=== PATIENT | male | born 1965 | race Caucasian/White ===

== ENCOUNTER → 2020-01-28 | Outpatient (CLI) | payer BC ==
--- NOTE | 2020-01-28 15:21 | US ---
EXAMINATION TYPE: US kidneys/renal and bladder DATE OF EXAM: 01/28/2020 COMPARISON: NONE CLINICAL HISTORY: Abn kidney function testR94.4. Abnormal labs EXAM MEASUREMENTS: Right Kidney: 10.6 x 4.1 x 4.7 cm Left Kidney: 9.3 x 6.6 x 4.9 cm Right Kidney: Appeared wnl Left Kidney: Appeared wnl Bladder: wnl Bilateral Jets seen: Only right jet visualized Incidental finding gallstones There is no evidence for hydronephrosis at this point in time. No nephrolithiasis is seen. No kathryn s are identified. The urinary bladder is anechoic. IMPRESSION: 1. No distinct abnormality seen. Incidental cholelithiasis.
== END | disposition home or self-care (01) ==
LOC: RADUSWWP 14:56
PROVIDERS: ATTEND Internal Medicine Geriatric Medicine
DX: R94.4 Abnormal results of kidney function studies (principal)
CPT/HCPCS: 76770

== ENCOUNTER → 2021-07-07 | Outpatient (CLI) | payer BC ==
--- NOTE | 2021-07-07 09:44 | CT ---
EXAMINATION TYPE: CT foot LT wo con DATE OF EXAM: 07/07/2021 COMPARISON: None available HISTORY: Lt foot pain CT DLP: 143.3 mGycm Automated exposure control for dose reduction was used. TECHNIQUE: Multiplanar CT scan of the left foot without IV contrast administration. FINDINGS: Elongated 12 mm bone chip is seen at the lateral aspect of the calcaneocuboid articulation which coul d represent soft tissue calcification versus chronic avulsion fracture, please correlate clinically. Osteophytosis of the dorsal aspect of the fourth distal interphalangeal joint. 2 mm bone fragment/sof t tissue calcification is seen in the sinus tarsi yet still demonstrates preserved fat. No definite acute fracture line identified otherwise. No other significant bony or articular abnormal ity is seen. Preserved ankle mortise with a smooth talar dome. No sizable ankle joint effusion. Soft tissue abnormality cannot be excluded by this CT scan. IMPRESSION: 12 mm elongated bone chip at the lateral aspect of the calcaneocuboid articulation which could repres ent a soft tissue calcification versus chronic avulsion fracture, please correlate clinically. Other incidental findings as described above. Further bone scan assessment can be considered if clinically required.
== END | disposition home or self-care (01) ==
LOC: RADCTMAIN 06:54
PROVIDERS: ATTEND Podiatrist
DX: M89.8X7 Other specified disorders of bone, ankle and foot (principal)

== ENCOUNTER 2021-11-10 07:34 | Day surgery (SDC) | payer BC ==
[2021-11-09 13:52] VITALS: BMI 25.0
[~2021-11-10 07:34] MED LIST: LACTATED RINGERS 1,000 ML IV SCH
[2021-11-10 07:59] VITALS: RESP 16; TEMP 97.2
[2021-11-10] MEDS ORDERED: PROPOFOL 10 MG/ML 20 ML VIAL IV ONE (09:28)
--- NOTE | 2021-11-10 09:42 | P.PCN ---
Date of Procedure: 11/10/21 Procedure(s) Performed: BRIEF HISTORY: Patient is a 56-year-old pleasant white male scheduled for an elective colonoscopy as a part of screening for colorectal neoplasia PROCEDURE PERFORMED: Colonoscopy. PREOPERATIVE DIAGNOSIS: Screening for colon cancer. IV sedation per Anesthesia. PROCEDURE: After informed consent was obtained, the patient, was brought into the endoscopy unit. IV sedation was administered by Anesthesia under continuous monitoring. Digital rectal examination was normal. Initially the Olympus CF-160 flexible video colonoscope was then inserted in the rectum, gradually advanced into the cecum without any difficulty. Careful examination was performed as the scope was gradually being withdrawn. Ileocecal valve and the appendiceal orifice were visualized and appeared normal. Prep was excellent. Mucosa of the cecum, ascending colon, transverse colon, descending colon, sigmoid colon, and rectum appeared normal. Retroflexion was performed in the rectum and no lesions were seen. The patient tolerated the procedure well. IMPRESSION: Normal-appearing colon from rectum to cecum no evidence of colorectal neoplasia. RECOMMENDATIONS: Findings of this examination were discussed with the patient as well as his family. He was advised to have a repeat screening colonoscopy in 10 years..
[2021-11-10 10:02] VITALS: BP 138/72; PULSE 64
== END 2021-11-10 10:18 | disposition home or self-care (01) ==
LOC: ORWHC2ENDO 07:34
PROVIDERS: ATTEND Internal Medicine Gastroenterology
DX: Z12.11 Encounter for screening for malignant neoplasm of colon (principal); Z79.899 Other long term (current) drug therapy; Z80.1 Family history of malignant neoplasm of trachea, bronchus and lung; Z82.49 Family history of ischemic heart disease and other diseases of the circulatory system; Z83.49 Family history of other endocrine, nutritional and metabolic diseases
CPT/HCPCS: 45378; J2704